=== PATIENT | male | born 1970 | race Two or more races ===

== ENCOUNTER 2021-04-01 03:31 | Emergency (ER) | payer SELFPAY ==
[~2021-04-01] VITALS: Ht 165.1 cm; Wt 65.8 kg
[2021-04-01] MEDS ORDERED: LIDOCAINE 2% (UROJET) 10 ML JELLY MM ONE ×2 (03:57→04:00)
--- NOTE | 2021-04-01 04:13 | NUR ---
Placed 16fringe vazquez cath as ordered.
[2021-04-01 04:14] LABS: HEMATOCRIT 42.6 % (36.7-47.1); MEAN CORPUSCULAR HEMOGLOBIN 30.8 uug (23.8-33.4); PLATELET COUNT (AUTO) 285 K/uL (152-348)
[2021-04-01 04:15] LABS: *BILIRUBIN,URIN NEGATIVE (NEGATIVE); *BLOOD, URINE 2+ (NEGATIVE); *CLARITY,URINE CLEAR (CLEAR); *KETONES,URINE NEGATIVE (NEGATIVE); *UROBILINOGEN,URINE 0.2 E.U./dl (NORMAL); LEUKOCYTE ESTERASE ,URINE NEGATIVE (NEGATIVE); NITRITE, URINE NEGATIVE (NEGATIVE); PH,URINE 6.5 (5.0-8.0); UGLUCOSE NEGATIVE (NEGATIVE)
[2021-04-01 04:17] LABS: POTASSIUM 3.6 mmol/L (3.5-5.1)
[2021-04-01 04:19] LABS: *COLOR,URINE STRAW (YELLOW)
[2021-04-01 04:24] LABS: BACTERIA,URINE NONE SEEN /HPF (NONE SEEN); SQUAMOUS EPITHELIAL CELL,UR FEW /HPF (NONE SEEN); WBC,URINE 0-3 /HPF (0-3)
[2021-04-01] MEDS ORDERED: NITR100C11 PO (04:31)
--- NOTE | 2021-04-01 04:43 | NUR ---
[facility]keon cath drained 700ml of clear yellow urine. Patient states abdominal pain is "gone now."
--- NOTE | 2021-04-01 04:45 | NUR ---
Placed leg bag attachment to vazquez and instructed how patient to empty leg bag.
[2021-04-01 04:46] VITALS: BP 127/88
--- NOTE | 2021-04-01 04:48 | NUR ---
Patient discharged to home in stable condition. Written and verbal after care instructions given. Patient verbalizes understanding of instructions. Stressed follow up or return to ER for worsening s/s.
== END 2021-04-01 04:48 | disposition home or self-care (01) ==
LOC: ER 03:35
DX: R33.9 Retention of urine, unspecified (principal); Z88.0 Allergy status to penicillin; R03.0 Elevated blood-pressure reading, without diagnosis of hypertension
CPT/HCPCS: 36415; 51702; 85025; A4663